=== PATIENT | female | born 1960 | race Caucasian/White ===

== ENCOUNTER 2024-02-21 06:19 | Day surgery (SDC) | payer BC, SELFPAY | END 2024-02-21 08:55 | disposition home or self-care (01) | LOC: GI 06:19 | PROVIDERS: ATTENDING PHYSICIAN Internal Medicine Gastroenterology | DX: K63.5 Polyp of colon (principal); K62.1 Rectal polyp; Z86.0101 Personal history of adenomatous and serrated colon polyps; K57.30 Diverticulosis of large intestine without perforation or abscess without bleeding | CPT/HCPCS: 45385; 88305 ==